=== PATIENT | male | born 1965 | race Caucasian/White ===

== ENCOUNTER → 2016-05-30 | Outpatient (REF) | payer BC ==
[2016-05-30 13:27] LABS: ALBUMIN 3.9 GM/DL (3.2-5.2); ALBUMIN/GLOBULIN RATIO 1.18 (1.00-1.93); ALKALINE PHOSPHATASE 38 U/L (45-117); ALT/SGPT 45 U/L (12-78); ANION GAP 10 MEQ/L (8-16); AST/SGOT 27 U/L (15-37); BILIRUBIN,TOTAL 0.6 MG/DL (0.2-1.0); BLOOD UREA NITROGEN 17 MG/DL (7-18); CALCIUM LEVEL 9.2 MG/DL (8.5-10.1); CARBON DIOXIDE LEVEL 27 MEQ/L (21-32); CHLORIDE LEVEL 104 MEQ/L (98-107); CHOLESTEROL LEVEL 173 MG/DL (<200); GLOMERULAR FILTRATION RATE > 60.0 (>60); GLUCOSE, FASTING 112 MG/DL (70-105); POTASSIUM SERUM 4.2 MEQ/L (3.5-5.1); SODIUM LEVEL 141 MEQ/L (136-145); TOTAL PROTEIN 7.2 GM/DL (6.4-8.2); TRIGLYCERIDES LEVEL 198 MG/DL (<150)
== END ==
LOC: M SFHCPLAZ 07:54
PROVIDERS: ATTEND Nurse Practitioner Family
DX: E11.9 Type 2 diabetes mellitus without complications (principal); E78.2 Mixed hyperlipidemia

== ENCOUNTER → 2016-08-06 | Outpatient (CLI) | payer BC ==
--- NOTE | 2016-08-06 12:41 | REP ---
Clinical: Nephrolithiasis. Comparison: 02/09/2016. Findings: Single supine view of the abdomen and pelvis demonstrates bilateral nephrolithiasis with intrarenal calculi measuring up to approximately 4 mm. The calcification overlying the right psoas muscle measuring 4.2 mm on prior examination remain stable when compared to CT dated 02/15/2016 corresponds to calcifications related to the intervertebral disc and not ureteral calculus. Bowel gas pattern is nonspecific. Skeletal structures are intact. Impression: 1. Bilateral nephrolithiasis up to 4 mm. 2. Previously identified 4.2 mm calculus overlying the right psoas muscle corresponds to chronic calcification of the adjacent intervertebral disc and not ureteral calculus. Signed by Dejuan Hutchison MD 08/06/2016 12:32 P
== END ==
LOC: M SMT 11:19
PROVIDERS: ATTEND Urology
DX: N20.0 Calculus of kidney (principal)

== ENCOUNTER → 2016-09-04 | Outpatient (REF) | payer BC ==
[2016-09-04 11:31] LABS: ALBUMIN 3.9 GM/DL (3.2-5.2); ALBUMIN/GLOBULIN RATIO 1.15 (1.00-1.93); ALKALINE PHOSPHATASE 41 U/L (45-117); ALT/SGPT 47 U/L (12-78); ANION GAP 10 MEQ/L (8-16); AST/SGOT 24 U/L (15-37); BLOOD UREA NITROGEN 13 MG/DL (7-18); CALCIUM LEVEL 9.3 MG/DL (8.5-10.1); CARBON DIOXIDE LEVEL 28 MEQ/L (21-32); CHLORIDE LEVEL 104 MEQ/L (98-107); CREATININE FOR GFR 0.78 MG/DL (0.70-1.30); GLOMERULAR FILTRATION RATE > 60.0 (>56); GLUCOSE, FASTING 91 MG/DL (70-105); POTASSIUM SERUM 3.9 MEQ/L (3.5-5.1); SODIUM LEVEL 142 MEQ/L (136-145); TOTAL PROTEIN 7.3 GM/DL (6.4-8.2)
== END ==
LOC: M SFHCPLAZ 08:28
PROVIDERS: ATTEND Nurse Practitioner Family
DX: E11.9 Type 2 diabetes mellitus without complications (principal); E55.9 Vitamin D deficiency, unspecified

== ENCOUNTER → 2017-05-30 | Outpatient (REF) | payer BC ==
[2017-05-30 13:12] LABS: ALBUMIN 3.8 GM/DL (3.2-5.2); ALBUMIN/GLOBULIN RATIO 1.03 (1.00-1.93); ALKALINE PHOSPHATASE 46 U/L (45-117); ALT/SGPT 45 U/L (12-78); ANION GAP 6 MEQ/L (8-16); AST/SGOT 24 U/L (7-37); BILIRUBIN,TOTAL 0.5 MG/DL (0.2-1.0); BLOOD UREA NITROGEN 15 MG/DL (7-18); CALCIUM LEVEL 9.2 MG/DL (8.5-10.1); CARBON DIOXIDE LEVEL 29 MEQ/L (21-32); CHLORIDE LEVEL 106 MEQ/L (98-107); CHOLESTEROL LEVEL 111 MG/DL (<200); CHOLESTEROL RISK RATIO 2.413 (<5); CREATININE FOR GFR 0.78 MG/DL (0.70-1.30); GLOMERULAR FILTRATION RATE > 60.0 (>56); GLUCOSE, FASTING 123 MG/DL (70-100); HDL CHOLESTEROL 46 MG/DL (>40); NON-HDL-C 65 MG/DL; POTASSIUM SERUM 4.2 MEQ/L (3.5-5.1); SODIUM LEVEL 141 MEQ/L (136-145); TOTAL PROTEIN 7.5 GM/DL (6.4-8.2); TRIGLYCERIDES LEVEL 135 MG/DL (<150)
[2017-05-30 13:47] LABS: MALB URINE SIEMENS 26.3 MG/L; MAU/CREAT RATIO 16.4 MCG/MG (0.0-30.0)
[2017-05-30 15:25] LABS: ESTIMATED AVERAGE GLUCOSE 151 MG/DL (60-110); HEMOGLOBIN A1c 6.9 %
== END ==
LOC: M SFHCPLAZ 07:58
DX: E78.2 Mixed hyperlipidemia (principal); E11.9 Type 2 diabetes mellitus without complications
CPT/HCPCS: 80053

== ENCOUNTER 2017-07-31 06:37 | Day surgery (SDC) | payer BC ==
[2017-07-31] MEDS ORDERED: PROPOFOL 200 MG/20 ML VIAL As Ordered ×2 (07:11→07:33)
[2017-07-31] MEDS: NS 1,000 ML IV (07:12)
[2017-07-31 07:30] LABS: BEDSIDE GLUCOSE 139 MG/DL (70-105)
== END 2017-07-31 08:42 | disposition home or self-care (01) ==
LOC: M OPP 06:37
DX: Z12.11 Encounter for screening for malignant neoplasm of colon (principal); K62.1 Rectal polyp; K64.8 Other hemorrhoids; K57.30 Diverticulosis of large intestine without perforation or abscess without bleeding; E78.5 Hyperlipidemia, unspecified; E11.9 Type 2 diabetes mellitus without complications; F32.9 Major depressive disorder, single episode, unspecified; F41.9 Anxiety disorder, unspecified; R06.83 Snoring; Z87.442 Personal history of urinary calculi; Z79.82 Long term (current) use of aspirin; Z79.899 Other long term (current) drug therapy; Z79.4 Long term (current) use of insulin; Z80.49 Family history of malignant neoplasm of other genital organs
CPT/HCPCS: 45385

== ENCOUNTER → 2017-08-12 | Outpatient (CLI) | payer BC | LOC: M SMT 10:49 | DX: N20.0 Calculus of kidney (principal) | CPT/HCPCS: 74018 ==

== ENCOUNTER → 2018-01-31 | Outpatient (REF) | payer BC ==
[2018-01-31 12:32] LABS: ALBUMIN 3.8 GM/DL (3.2-5.2); ALBUMIN/GLOBULIN RATIO 1.19 (1.00-1.93); ALKALINE PHOSPHATASE 45 U/L (45-117); ALT/SGPT 46 U/L (12-78); ANION GAP 6 MEQ/L (8-16); AST/SGOT 22 U/L (7-37); BILIRUBIN,TOTAL 0.4 MG/DL (0.2-1.0); BLOOD UREA NITROGEN 12 MG/DL (7-18); CALCIUM LEVEL 9.4 MG/DL (8.5-10.1); CARBON DIOXIDE LEVEL 27 MEQ/L (21-32); CHLORIDE LEVEL 104 MEQ/L (98-107); CREATININE FOR GFR 0.72 MG/DL (0.70-1.30); GLOMERULAR FILTRATION RATE > 60.0 (>56); GLUCOSE, FASTING 197 MG/DL (70-100); POTASSIUM SERUM 4.1 MEQ/L (3.5-5.1); SODIUM LEVEL 137 MEQ/L (136-145)
[2018-01-31 14:36] LABS: ESTIMATED AVERAGE GLUCOSE 174 MG/DL (60-110); HEMOGLOBIN A1c 7.7 %
== END ==
LOC: M SFHCPLAZ 09:26
DX: E11.9 Type 2 diabetes mellitus without complications (principal); Z12.5 Encounter for screening for malignant neoplasm of prostate

== ENCOUNTER → 2018-02-26 | Outpatient (REF) | payer BC | LOC: M SMT 13:04 | DX: R97.20 Elevated prostate specific antigen [PSA] (principal) | CPT/HCPCS: 87086 ==

== ENCOUNTER → 2018-04-15 | Outpatient (CLI) | payer BC ==
[~2018-04-15] MED LIST: ASPI81TA21; ATOR40TA75; ECHI125T PO; ESCI10TA2; INSULANT; METF500T13; MULT1TAB10 PO; VITA500T PO; [UNRECOGNIZED DRUG - OTHER] PO
--- NOTE | 2018-04-15 14:51 | REP ---
Prostate sonography: History: Elevated PSA. Sonographic findings: Trans rectal prostate sonography demonstrates unremarkable seminal vesicles. Prostate gland is heterogeneously enlarged with calcifications and cystic changes noted. Glandular dimensions are measured at 5.3 x 4.0 x 5.6 cm with a calculated glandular volume of 62.2 ml. There is a right-sided prostate nodule measuring 0.9 cm and a left-sided nodule is seen measuring 1.1 cm. Transrectal sonographic guidance provided to Dr. Resendiz who performed trans rectal ultrasound guided needle biopsy procedure . Electronically Signed by Simon Chatman MD 04/15/2018 02:42 P
== END ==
LOC: M SMT PRO 08:13
PROVIDERS: ATTEND Nurse Practitioner Family
DX: R97.20 Elevated prostate specific antigen [PSA] (principal)
CPT/HCPCS: 76872; 76942; G0416

== ENCOUNTER → 2019-03-03 | Outpatient (CLI) | payer BC ==
[2019-03-04 14:42] LABS: PSA % FREE 15.6 % (.); PSA FREE 0.86 ng/mL; PSA TOTAL 5.5 ng/mL (0.0-4.0)
== END ==
LOC: M PLALAB 10:42
PROVIDERS: ATTEND Urology
DX: R97.20 Elevated prostate specific antigen [PSA] (principal)

== ENCOUNTER → 2019-03-03 | Outpatient (CLI) | payer BC ==
[2019-03-03 13:34] LABS: ALT/SGPT 48 U/L (12-78); BILIRUBIN,TOTAL 0.7 MG/DL (0.2-1.0); BLOOD UREA NITROGEN 17 MG/DL (7-18); CALCIUM LEVEL 9.7 MG/DL (8.5-10.1); CARBON DIOXIDE LEVEL 27 MEQ/L (21-32); CHLORIDE LEVEL 108 MEQ/L (98-107); CHOLESTEROL LEVEL 131 MG/DL (<200); CHOLESTEROL RISK RATIO 3.195 (<5); CREATININE FOR GFR 0.93 MG/DL (0.70-1.30); GLOMERULAR FILTRATION RATE > 60.0 (>56); GLUCOSE, FASTING 124 MG/DL (70-100); HDL CHOLESTEROL 41 MG/DL (>40); LDL CHOLESTEROL 63 MG/DL (<100); NON-HDL-C 90 MG/DL; POTASSIUM SERUM 4.2 MEQ/L (3.5-5.1); SODIUM LEVEL 140 MEQ/L (136-145); TOTAL PROTEIN 7.5 GM/DL (6.4-8.2); TRIGLYCERIDES LEVEL 136 MG/DL (<150)
[2019-03-03 13:59] LABS: HEMOGLOBIN A1c 6.7 %
[2019-03-03 14:00] LABS: MAU/CREAT RATIO 36.4 MCG/MG (0.0-30.0)
== END ==
LOC: M PLALAB 10:40
PROVIDERS: ATTEND Nurse Practitioner Family
DX: E11.9 Type 2 diabetes mellitus without complications (principal)

== ENCOUNTER → 2019-05-29 | Outpatient (CLI) | payer BC ==
--- NOTE | 2019-05-29 13:38 | REPPI ---
RIGHT ELBOW, FOUR VIEWS: Four views of the right elbow are performed. There is no acute fracture or dislocation. The joint spaces appear unremarkable. I do not see a significant joint effusion. IMPRESSION: Negative right elbow series. Electronically Signed by Tamir Leblanc MD 06/02/2019 03:53 P
--- NOTE | 2019-05-29 13:38 | REPPI ---
LEFT KNEE, FIVE VIEWS: Five views of the left knee are performed. There is no fracture or dislocation. Medial and lateral joint spaces appear unremarkable. There appears to be slight lateral patellofemoral compartment narrowing. No joint effusion is seen. IMPRESSION: Minor degenerative change lateral patellofemoral joint. Electronically Signed by Tamir Leblanc MD 06/02/2019 03:53 P
== END ==
LOC: M PLAIMG 11:56
PROVIDERS: ATTEND Physician Assistant
DX: M25.562 Pain in left knee (principal); M25.521 Pain in right elbow

== ENCOUNTER → 2019-09-18 | Outpatient (CLI) | payer BC ==
[~2019-09-18] MED LIST changes: +VITA-243 PO; -VITA500T PO
[2019-09-19 21:07] LABS: PSA % FREE 16.3 % (.); PSA FREE 0.93 ng/mL; PSA TOTAL 5.7 ng/mL (0.0-4.0)
== END ==
LOC: M PLALAB 10:37
PROVIDERS: ATTEND Urology
DX: R97.20 Elevated prostate specific antigen [PSA] (principal)

== ENCOUNTER 2019-09-19 18:04 | Emergency (ER) | payer BC ==
[~2019-09-19] VITALS: Ht 182.9 cm; Wt 8.3 kg
[2019-09-19 18:06] VITALS: BP 118/72
[2019-09-19] MEDS ORDERED: BOOSTRIX/ADACEL VACCINE (DIPHTH/PERTUSS/ACELL/TETANUS) 0.5ML SYR IM ONE (18:30)
== END 2019-09-19 18:41 | disposition home or self-care (01) ==
LOC: M ED 18:04
DX: S91.332A Puncture wound without foreign body, left foot, initial encounter (principal); W22.8XXA Striking against or struck by other objects, initial encounter; W45.0XXA Nail entering through skin, initial encounter; Y92.9 Unspecified place or not applicable; Y99.8 Other external cause status; Y93.9 Activity, unspecified; E11.9 Type 2 diabetes mellitus without complications; Z79.899 Other long term (current) drug therapy

== ENCOUNTER → 2020-01-12 | Outpatient (REF) | payer BC ==
[2020-01-12 14:28] LABS: APPEARANCE, URINE CLEAR (CLEAR); BACTERIA, URINE AUTO NEGATIVE (NEGATIVE); BILIRUBIN, URINE AUTO NEGATIVE (NEGATIVE); BLOOD, URINE BLOOD 3+ (NEGATIVE); COLOR, URINE YELLOW (YELLOW); GLUCOSE, URINE (UA) AUTO NEGATIVE (NEGATIVE); KETONE, URINE AUTO NEGATIVE (NEGATIVE); LEUKOCYTE ESTERASE, URINE AUTO TRACE (NEGATIVE); MUCUS, URINE SMALL (NEGATIVE); NITRITE, URINE AUTO NEGATIVE (NEGATIVE); PROTEIN, URINE AUTO NEGATIVE (NEGATIVE); RBC, URINE AUTO TNTC /HPF (0-3); SPECIFIC GRAVITY URINE AUTO 1.015 (1.002-1.035); SQUAMOUS EPITHELIAL CELL UR AU 0 /HPF (0-6); UROBILINOGEN, URINE AUTO 0.2 mg/dL (0.0-2.0); WBC, URINE AUTO 13 /HPF (0-3)
== END ==
LOC: M SMT 13:35
PROVIDERS: ATTEND Nurse Practitioner Women's Health
DX: R82.998 Other abnormal findings in urine (principal)

== ENCOUNTER → 2020-01-18 | Outpatient (CLI) | payer BC ==
--- NOTE | 2020-01-20 05:52 | REP ---
INDICATION: HX OF KIDNEY STONES COMPARISON: None TECHNIQUE: Axial noncontrast images from the lung bases to the pubic symphysis with coronal and sagittal reformations. This CT examination was performed using the following dose reduction techniques: Automated exposure control, adjustment of mA and/or kv according to the patient's size, and use of iterative reconstruction technique. FINDINGS: Evaluation of the kidneys demonstrates bilateral nephrolithiasis without hydronephrosis or perinephric stranding. The left kidney demonstrates a lateral midpole hypodense lesion with calcification and essentially unchanged from prior examination likely representing complex cyst with layering milk of calcium. A lower pole left renal lesion which was previously classified as cyst based on low-density Hounsfield unit characteristics, has increased in size and now demonstrates soft tissue component suspicious for a partially cystic renal neoplasm. Lesion currently measures 3.0 cm maximal diameter (images [id number]) and warrants further investigation including pre and postcontrast CT or MRI. No adjacent perinephric stranding or adenopathy noted. Liver, spleen, pancreas, gallbladder, and bilateral adrenal glands are normal. The enteric system is without obstruction or acute inflammatory process. Normal terminal ileum and appendix are identified in the right lower quadrant. Scattered sigmoid diverticula noted without acute diverticulitis. Pelvis demonstrates prostatomegaly measuring roughly 5.4 x 4.5 x 4.5 cm and having mass effect on the base of the bladder. No ascites. No free air. No intraperitoneal or retroperitoneal adenopathy. Osseous structures are intact. Lung bases are clear. IMPRESSION: 1. Left renal lesion increased in size from prior examination concerning for possible malignancy requires further investigation and urology consultation. Consider pre and postcontrast CT or MRI of the abdomen. 2. Bilateral nephrolithiasis. 3. Prostatomegaly. 4. Scattered sigmoid diverticula. <Electronically signed by Dejuan Hutchison > 01/20/20 [id number]
== END ==
LOC: M RAD 16:28
PROVIDERS: ATTEND Nurse Practitioner Women's Health
DX: N40.1 Benign prostatic hyperplasia with lower urinary tract symptoms (principal); N20.0 Calculus of kidney; N28.9 Disorder of kidney and ureter, unspecified; R10.9 Unspecified abdominal pain; R31.9 Hematuria, unspecified

== ENCOUNTER → 2020-01-26 | Outpatient (CLI) | payer BC ==
[2020-01-26 19:00] LABS: BLOOD UREA NITROGEN 18 MG/DL (7-18); CALCIUM LEVEL 10.3 MG/DL (8.5-10.1); CARBON DIOXIDE LEVEL 29 MEQ/L (21-32); CHLORIDE LEVEL 105 MEQ/L (98-107); GLOMERULAR FILTRATION RATE > 60.0 (>56); GLUCOSE, FASTING 101 MG/DL (70-100); POTASSIUM SERUM 4.3 MEQ/L (3.5-5.1); SODIUM LEVEL 138 MEQ/L (136-145)
== END ==
LOC: M LAB 16:53
PROVIDERS: ATTEND Nurse Practitioner Women's Health
DX: R31.29 Other microscopic hematuria (principal)

== ENCOUNTER → 2020-02-01 | Outpatient (CLI) | payer BC ==
[~2020-02-01] MED LIST changes: +ISOVUE-370 76% 100ML VIAL As Ordered ONE
--- NOTE | 2020-02-02 16:39 | REP ---
INDICATION: HEMATUIRA COMPLEX RENAL CYST. COMPARISON: 01/18/2020, 02/15/2016, 11/29/2015 TECHNIQUE: Axial precontrast, contrast-enhanced, and delayed images from the lung bases to the pubic symphysis using 100 cc Isovue 370 intravenous contrast material. Coronal and sagittal reformations obtained.. This CT examination was performed using the following dose reduction techniques: Automated exposure control, adjustment of mA and/or kv according to the patient's size, and the use of iterative reconstruction technique. FINDINGS: The kidneys demonstrate innumerable bilateral nonobstructing calculi measuring up to roughly 5 mm in the right kidney and 8 mm in the left kidney along with multiple calcifications partially obstructing the bilateral distal ureters at the level of the ureterovesical junctions within the bladder trigone. There is a 5 mm partially obstructing calculus within the mid left ureter (series 201; images 94-97). There is no evidence for significant hydronephrosis or perinephric stranding. Right kidney includes a 1.9 cm Bosniak 2 upper pole cyst with suggestions for very subtle mural calcification as well as smaller benign appearing simple cysts at the lower pole measuring up to 1 cm. Left kidney includes 2.4 cm posterior midpole cyst with layering milk of calcium and 2nd more inferior posterior midpole cyst measuring 3.1 cm also demonstrating small amounts of layering milk of calcium and mural calcification likely representing Bosniak 2 cysts. Few smaller left renal simple appearing cysts are also identified measuring up to 9 mm. Liver, spleen, pancreas, gallbladder, and bilateral adrenal glands are normal. The enteric system including stomach, small, and large bowel appears relatively normal. No evidence for obstruction or acute inflammatory process. Normal terminal ileum and appendix are identified in the right lower quadrant. Few scattered colonic diverticula noted without acute diverticulitis. Pelvis demonstrates normal bladder and enlarged prostate gland measuring 6 cm transverse diameter. No ascites. No free air. No intraperitoneal or retroperitoneal adenopathy. Abdominal aorta and vasculature appear normal. Musculoskeletal structures are intact and without acute osseous abnormality. IMPRESSION: 1. Renal findings as described above including multiple bilateral intrarenal calculi and findings including partially obstructing left ureteral calculus and bilateral UVJ calculi. 2. Bilateral renal cysts as described above which may be classified as a Bosniak 2. 3. Prostatomegaly. 4. Colonic diverticula without acute diverticulitis. <Electronically signed by Dejuan Hutchison > 02/02/20 [id number]
== END ==
LOC: M RAD 08:38
PROVIDERS: ATTEND Nurse Practitioner Women's Health
DX: R31.9 Hematuria, unspecified (principal); N28.1 Cyst of kidney, acquired

== ENCOUNTER → 2020-02-08 | Outpatient (REF) | payer BC ==
[~2020-02-08] MED LIST changes: -ISOVUE-370 76% 100ML VIAL As Ordered ONE
== END ==
LOC: M SMT 16:44
PROVIDERS: ATTEND Urology
DX: N20.0 Calculus of kidney (principal)

== ENCOUNTER → 2020-02-24 | Outpatient (REF) | payer BC ==
[~2020-02-24] MED LIST changes: +BEANTAB8 PO; +CALC250T PO; -INSULANT; +INSULANT SC; +SILD100T PO
== END ==
LOC: M SMT 17:17
PROVIDERS: ATTEND Urology
DX: N39.0 Urinary tract infection, site not specified (principal)

== ENCOUNTER → 2020-02-24 | Outpatient (CLI) | payer BC | LOC: M LABSMTC 12:36 | PROVIDERS: ATTEND Anesthesiology | DX: Z01.812 Encounter for preprocedural laboratory examination (principal); Z20.828 Contact with and (suspected) exposure to other viral communicable diseases ==

== ENCOUNTER → 2020-02-25 | Outpatient (REF) | payer BC ==
[~2020-02-25] MED LIST changes: +OXYC1TAB23 PO
[2020-02-25 17:56] LABS: HEMATOCRIT 46.3 % (42.0-52.0); HEMOGLOBIN 15.6 g/dl (13.5-17.5); MEAN CORPUSCULAR HEMOGLOBIN 30.8 pg (27.0-33.0); MEAN CORPUSCULAR HGB CONC 33.7 g/dl (32.0-36.5); MEAN CORPUSCULAR VOLUME 91.3 fl (80.0-96.0); PLATELET COUNT, AUTOMATED 150 10^3/uL (150-450); RED BLOOD COUNT 5.07 10^6/uL (4.30-6.10); WHITE BLOOD COUNT 7.3 10^3/uL (4.0-10.0)
[2020-02-25 20:15] LABS: BLOOD UREA NITROGEN 25 MG/DL (7-18); CALCIUM LEVEL 10.9 MG/DL (8.5-10.1); CARBON DIOXIDE LEVEL 28 MEQ/L (21-32); CHLORIDE LEVEL 105 MEQ/L (98-107); GLOMERULAR FILTRATION RATE > 60.0 (>56); GLUCOSE, FASTING 78 MG/DL (70-100); POTASSIUM SERUM 4.2 MEQ/L (3.5-5.1); SODIUM LEVEL 138 MEQ/L (136-145)
[2020-02-25 20:54] LABS: HEMOGLOBIN A1c 6.6 %
== END ==
LOC: M SFHCPLAZ 15:38
PROVIDERS: ATTEND Physician Assistant
DX: E11.9 Type 2 diabetes mellitus without complications (principal)

== ENCOUNTER → 2020-02-25 | Outpatient (CLI) | payer BC ==
--- NOTE | 2020-02-25 18:53 | ECGEPIP ---
[facility] Test Date: 2020-02-25 Pat Name: KYLE FITZPATRICK Department: Room: - Gender: Male Oxygen Therapy Technician: JAILYN : 1965 Requested By: JODIE Whitley Order Number: [id number] Reading MD: Dahiana Uribe Measurements Intervals [place] Rate: 58 P: 22 UT: 144 QRS: 18 QRSD: 105 T: 34 QT: 385 QTc: 379 Interpretive Statements SINUS BRADYCARDIA NO PRIOR Electronically Signed on 02-25-2020 18:53:26 EST by Dahiana Uribe
== END ==
LOC: M EKG 16:09
PROVIDERS: ATTEND Urology
DX: N20.0 Calculus of kidney (principal)

== ENCOUNTER 2020-02-29 07:34 | Day surgery (SDC) | payer BC ==
[~2020-02-29] VITALS: Ht 182.9 cm; Wt 83.9 kg
[~2020-02-29 07:34] MED LIST changes: +LIDOCAINE 2% 100MG/5ML SDV (FOR ANES.) As Ordered ONE; +LR 1,000 ML IV ONE; +METOCLOPRAMIDE INJ 10MG/2ML VIAL (J2765 PER 1) As Ordered ONE; +MIDAZOLAM INJ 2MG/2ML VIAL (J2250 PER 1MG) As Ordered ONE; +ONDANSETRON 4MG/2ML VIAL As Ordered ONE; -OXYC1TAB23 PO; +ceFAZolin SOD 2 GM in IV 1 EA IV ONE; +fentaNYL 100 MCG/2 ML INJECTION (J3010) As Ordered ONE; +propofoL 200 MG/20 ML VIAL As Ordered ONE
[2020-02-29] MEDS ORDERED: CONRAY-60 60% 50ML VIAL (Q9961) As Ordered ONE (07:39)
[2020-02-29] MEDS ORDERED: dexameTHASONE 4 MG/ML 1ML VIAL (J1100 PER 1MG) As Ordered ONE (09:45)
[2020-02-29] MEDS ORDERED: KETOROLAC 60MG 2ML VIAL As Ordered ONE (09:45)
--- NOTE | 2020-02-29 10:45 | REP ---
INDICATION: CYSTO, URETEROSCOPY W/STENT PLACEMENT. COMPARISON: None. TECHNIQUE: Four views. 23 seconds of fluoroscopy time. FINDINGS: A sequence of 4 last image hold fluoroscopically obtained spot radiographs of the abdomen document bilateral ureteral cannulation, contrast injection, and stent placement. IMPRESSION: Procedural imaging. <Electronically signed by Danny Chatman > 02/29/20 [id number]
[2020-02-29] MEDS ORDERED: OXYC1TAB23 PO (11:01)
[2020-02-29] MEDS ORDERED: PERCOCET 5MG/325MG TAB PO PRN (11:30)
[2020-02-29] MEDS ORDERED: HYDROMORPHONE HCL 0.5 MG/ 0.5 ML SYRINGE (J1170 PER 1) IV PRN (11:30)
[2020-02-29] MEDS ORDERED: LR 1,000 ML IV SCH (11:30)
[2020-02-29] MEDS ORDERED: ONDANSETRON 4MG/2ML VIAL IV PRN (11:30)
[2020-02-29] MEDS ORDERED: oxyCODONE 5MG TAB PO PRN (11:30)
[2020-02-29] MEDS ORDERED: fentaNYL 100 MCG/2 ML INJECTION (J3010) IV PRN (11:30)
--- NOTE | 2020-02-29 12:42 | RO ---
OPERATIVE NOTE DATE OF OPERATION: 02/29/2020 PREOPERATIVE DIAGNOSES: 1. Ureteroceles. 2. Kidney stones. POSTOPERATIVE DIAGNOSES: 1. Ureteroceles. 2. Kidney stones. 3. Nephrocalcinosis. PROCEDURES: 1. Cystoscopy. 2. Bilateral incision of ureteroceles. 3. Bilateral ureteroscopy with basket extraction of stones. 4. Bilateral retrograde pyelograms with intraoperative interpreted images. 5. Bilateral ureteral stent placement. SURGEON: Sebas Resendiz MD PASSPORT SUPPORT MANAGER: None. ANESTHESIA: General. OPERATIVE INDICATIONS: This is a 54-year-old male who on recent CT scan was found to have imaging consistent with bilateral ureteroceles with ureteral stones in distal ureters as well as bilateral kidney stones. He is brought to the operating room today for treatment. DESCRIPTION OF PROCEDURE: The patient was brought to the operating room and general anesthesia was induced. Prophylactic antibiotics were infused. He was placed in dorsal lithotomy position and prepped and draped in usual sterile fashion. At this point resectoscope was inserted in the urethra meatus and advanced into the bladder using visual obturator. Once inside the bladder the patient was noted to have bilateral ureteroceles. You could see stones protruding from both. Both ureteroceles were incised using a Savage knife until they were adequately draining. Once done some of the stones inside the distal ureters started to drain out the ureteral orifices and they were drained out of the bladder through the scope. Once that was done I removed the resectoscope and inserted a guidewire up the left collecting system. I went up up the left collecting system with the short semi-rigid ureteroscope and a few additional stones were seen in the distal ureter and these were removed with basket. I then advanced a ureteral access sheath up the left collecting system. I went up the left collecting system with a flexible ureteroscope and examined the left kidney thoroughly. Of note, all the calyces were notable for embedded calcifications consistent with nephrocalcinosis. Several stones were removed throughout the left kidney measuring up to 4-5 mm in size using basket. Once done a retrograde pyelogram was performed and was notable for mild hydronephrosis with no extravasation. I then withdrew the ureteroscope along with access sheath and no additional stones were seen inside the ureter. I then utilized the guidewire to advanced 7-Angolan x 22-32 cm JJ ureteral stent up the left collecting system. The wire was removed and there were adequate curls of the stent in left renal pelvis and the bladder. I then advanced the guidewire up the right collecting system. I went up the right collecting system with the short semi- rigid ureteroscope and within the distal ureter another stone was seen. The stone was grasped with a basket and removed. I then advanced the ureteral access sheath into right collecting system. I went up the access sheath with the flexible ureteroscope and the right kidney appeared similar to the left. There was nephrocalcinosis. There were several stones removed measuring up to 4-5 mm in size with basket. Once I was done a retrograde pyelogram was performed and notable for moderate right hydronephrosis with no extravasation. I then withdrew the ureteroscope along with access sheath and no additional stones were seen inside the ureter. I then utilized a guidewire to advanced 7-Angolan x 22-32 cm JJ ureteral stent up the right collecting system. The wire was removed and there were adequate curls of stent in right renal pelvis and bladder. The bladder was emptied of all fluids and this concluded the procedure. The patient was taken out of dorsal lithotomy position, awakened from anesthesia and transported to the recovery room in stable condition. EBL: 5 mL. COMPLICATIONS: None. SPECIMENS: Kidney stones. PLAN: The patient will follow up in urology clinic in 2-3 weeks for stent removal. SYED
[2020-02-29 13:09] VITALS: BP 126/68
== END 2020-02-29 14:25 | disposition home or self-care (01) ==
LOC: M SDC 07:34
PROVIDERS: ATTEND Urology
DX: N20.0 Calculus of kidney (principal); Q62.31 Congenital ureterocele, orthotopic; E11.9 Type 2 diabetes mellitus without complications; F32.9 Major depressive disorder, single episode, unspecified; Z79.4 Long term (current) use of insulin; Z79.52 Long term (current) use of systemic steroids; Z79.84 Long term (current) use of oral hypoglycemic drugs
CPT/HCPCS: 51535; 52332; 52352; 74420; 82365; 88300; C1769; C2617; J0690; J1100; J1885; J2250; J2405; J2765; J3010; Q9961

== ENCOUNTER → 2020-03-08 | Outpatient (REF) | payer BC ==
[~2020-03-08] MED LIST changes: -LIDOCAINE 2% 100MG/5ML SDV (FOR ANES.) As Ordered ONE; -LR 1,000 ML IV ONE; -METOCLOPRAMIDE INJ 10MG/2ML VIAL (J2765 PER 1) As Ordered ONE; -MIDAZOLAM INJ 2MG/2ML VIAL (J2250 PER 1MG) As Ordered ONE; -ONDANSETRON 4MG/2ML VIAL As Ordered ONE; +OXYC1TAB23 PO; -ceFAZolin SOD 2 GM in IV 1 EA IV ONE; -fentaNYL 100 MCG/2 ML INJECTION (J3010) As Ordered ONE; -propofoL 200 MG/20 ML VIAL As Ordered ONE
[2020-03-08 13:41] LABS: BLOOD UREA NITROGEN 25 MG/DL (7-18); CALCIUM LEVEL 9.8 MG/DL (8.5-10.1); CARBON DIOXIDE LEVEL 30 MEQ/L (21-32); CHLORIDE LEVEL 108 MEQ/L (98-107); CREATININE FOR GFR 0.98 MG/DL (0.70-1.30); GLOMERULAR FILTRATION RATE > 60.0 (>56); GLUCOSE, FASTING 116 MG/DL (70-100); SODIUM LEVEL 140 MEQ/L (136-145)
[2020-03-08 13:47] LABS: PTH INTACT 51.7 PG/ML (18.5-88.0)
== END ==
LOC: M PLALAB 08:41
PROVIDERS: ATTEND Family Medicine
DX: E83.52 Hypercalcemia (principal)